=== PATIENT | female | born 1970 | race Caucasian/White ===

== ENCOUNTER → 2023-09-12 | Outpatient (CLI) | payer BC ==
--- NOTE | 2023-09-12 21:32 | XR ---
EXAMINATION TYPE: XR chest 2V DATE OF EXAM: 09/12/2023 6:14 PM CLINICAL INDICATION:Female, 52 years old with history of HAS PFT FIRST!!!; [facility] COMPARISON: None TECHNIQUE: XR chest 2V Frontal and lateral views of the chest. FINDINGS: Lungs/Pleura: There is flattening of the diaphragm with increased lucency of the lungs. No evidence o f pneumothorax, pleural effusion or focal consolidation. Pulmonary vascularity: Unremarkable. Heart/mediastinum: Cardiomediastinal silhouette is unremarkable. Musculoskeletal: No acute osseous pathology. Other findings: None IMPRESSION: 1. No acute cardiopulmonary disease process. 2. COPD changes.
== END ==
LOC: CPPFTMAIN 16:45
PROVIDERS: ATTEND Internal Medicine
DX: R06.09 Other forms of dyspnea (principal); J44.9 Chronic obstructive pulmonary disease, unspecified
CPT/HCPCS: 71046; 94060; 94726; 94729

== ENCOUNTER → 2023-09-14 | Outpatient (CLI) | payer BC ==
[2023-09-15 02:13] LABS: Basophils # (A) 0.07 X 10*3/uL (0.00-0.10); Basophils % (A) 0.9 %; Eosinophils % (A) 2.5 %; HCT 50.4 % (37.2-46.3); HGB 15.8 g/dL (12.0-15.0); Lymphocytes # (A) 2.08 X 10*3/uL (0.90-5.00); Lymphocytes % (A) 26.4 %; MCH 28.7 pg (27.0-32.0); MCHC 31.3 g/dL (32.0-37.0); MCV 91.6 FL (80.0-97.0); Mean Platelet Volume 10.7 FL (9.5-12.2); Monocytes # (A) 0.44 X 10*3/uL (0.20-1.00); Monocytes % (A) 5.6 %; NRBC Per 100 WBC 0 X 10*3/uL (0.00-0.01); Neutrophils # (A) 5.01 X 10*3/uL (1.80-7.70); Neutrophils % (A) 63.6 %; Platelet Count 248 X 10*3/uL (140-440); RDW 13.5 % (11.5-14.5); WBC 7.88 X 10*3/uL (4.50-10.00)
[2023-09-15 02:52] LABS: ALT 11 U/L (8-44); AST 16 U/L (13-35); Albumin 4.8 g/dL (3.8-4.9); Alkaline Phosphatase 78 U/L (41-126); BUN/Creat Ratio 19.12 Ratio (12.00-20.00); Blood Urea Nitrogen 15.3 mg/dL (9.0-27.0); Calcium 10.1 mg/dL (8.7-10.3); Carbon Dioxide 27.7 mmol/L (21.6-31.8); Chloride 100 mmol/L (96-109); Chol/HDL Ratio 4.44 Ratio; Globulin 2.4 g/dL (1.6-3.3); Glucose 81 mg/dL (70-110); LDL Cholesterol,Calculated 189.4 mg/dL (0.0-131.0); Potassium 4.7 mmol/L (3.5-5.5); Rheumatoid Factor, Qnt <15 IU/mL (0-15); Sodium 138 mmol/L (135-145); Total Bilirubin 0.3 mg/dL (0.3-1.2); Total Protein 7.2 g/dL (6.2-8.2)
[2023-09-15 03:45] LABS: Erythrocyte Sedimentation Rate 11 mm/Hr (0-20)
[2023-09-15 03:56] LABS: Centromere Antibody <0.2 AI; Centromere Antibody Interp Negative (Negative); Cyclic Citrull Pep IgG Unit <1.5 U/mL (<=3.9); Cyclic Citrullinated Pep IgG Negative; DNA Double-Stranded Negative (Negative); Scleroderma SC-70 Ab <0.2 AI
== END | disposition home or self-care (01) ==
LOC: LABWHC1 14:18
PROVIDERS: ATTEND Internal Medicine
DX: Z00.00 Encounter for general adult medical examination without abnormal findings (principal); M79.7 Fibromyalgia; R20.2 Paresthesia of skin
CPT/HCPCS: 36415; 80053; 80061; 82607; 82746; 84443; 85025; 85652; 86038; 86200; 86225; 86235; 86431

== ENCOUNTER → 2023-09-20 | Outpatient (CLI) | payer BC ==
--- NOTE | 2023-09-23 23:34 | MM ---
Reason for Exam: Screening (asymptomatic). Patient History: Menarche at age 14. First Full-Term at age 19. Postmenopausal. Patient has history of breast feeding. Maternal aunt had breast cancer, age 45. Mother had breast cancer, right, age 50. Mother had breast cancer, right, age 51. Risk Values: Xenia 5 year model risk: 1.8%. NCI Lifetime model risk: 16.0%. Prior Study Comparison: No prior studies available for comparison. Tissue Density: The breast tissue is heterogeneously dense. This may lower the sensitivity of mammography. Findings: Analyzed By CAD. On the right, lateral subareolar nodularity warrants further evaluation. In the lateral aspect of the right breast at a middle depth, there is nodularity which may represent an intramammary lymph node but further evaluation is recommended. In the left breast, there is an asymmetric density laterally at a posterior depth which incompletely disperses on 3 images. Further evaluation is recommended. No suspicious microcalcification or other discrete abnormality is seen. Overall Assessment: Incomplete: need additional imaging evaluation, BI-RAD 0 Management: Special View Mammogram of both breasts. Diagnostic Breast Ultrasound of both breasts. 1. Right: Additional views to include spot 3-D CC (2 sites), spot 3-D MLO, and 3-D lateral views. 2. Left: Additional views to include spot 3-D CC, 3-D CC rolled medial, and 3-D ML views. 3. Targeted ultrasound on either side if any persisting abnormality. [facility] will attempt to contact patient to return for supplemental views and ultrasound if indicated. Electronically signed and approved by: Jessica Estrada M.D. Radiologist
== END | disposition home or self-care (01) ==
LOC: RADMAMWWP 13:42
PROVIDERS: ATTEND Internal Medicine
DX: Z12.31 Encounter for screening mammogram for malignant neoplasm of breast (principal); Z78.0 Asymptomatic menopausal state; Z80.3 Family history of malignant neoplasm of breast
CPT/HCPCS: 77063; 77067

== ENCOUNTER → 2023-09-28 | Outpatient (CLI) | payer BC ==
--- NOTE | 2023-09-28 14:37 | US ---
EXAMINATION TYPE: US arterial LE multi level DATE OF EXAM: 09/28/2023 11:11 AM CLINICAL INDICATION: Female, 52 years old with history of R25.2 CRAMP AND SPASM; Patient gets crampin g in both legs for years at rest and when walking. History of: Smoker: Current Hypertension: No Diabetic: No Hyperlipidemia: Yes TIA/CVA: No Previous Vascular Surgery: No CAD: No ND: No Vascular Ulcers: None Claudication: ? Gangrene: No Doppler Waveforms: Right: Multiphasic Left: Multiphasic Right Brachial Pressure: 142 Left Brachial Pressure: 138 Ankle-Brachial Indices: Right: 0.95 Left: 0.89 Toe Brachial Indices: Right: 0.70 Left: 0.69 IMPRESSION: Ankle brachial indices within normal limits.
== END | disposition home or self-care (01) ==
LOC: RADUSWWP 10:11
PROVIDERS: ATTEND Internal Medicine
DX: R25.2 Cramp and spasm (principal)
CPT/HCPCS: 93923

== ENCOUNTER → 2023-10-06 | Outpatient (CLI) | payer BC ==
--- NOTE | 2023-10-06 14:17 | MM ---
Reason for Exam: Additional evaluation requested from abnormal screening. Last screening mammogram was performed less than 1 month ago. Patient History: Menarche at age 14. First Full-Term at age 19. Postmenopausal. Patient has history of breast feeding. Maternal aunt had breast cancer, age 45. Mother had breast cancer, right, age 50. Mother had breast cancer, right, age 51. Risk Values: Xenia 5 year model risk: 1.8%. NCI Lifetime model risk: 16.0%. Prior Study Comparison: 09/20/2023 Bilateral MG 3D screening mammo w/cad, [facility]. Tissue Density: The breast tissue is heterogeneously dense. This may lower the sensitivity of mammography. Findings: Analyzed By CAD. Left breast: Under compression no persistent suspicious distortion is evident. Right breast: With compression, no suspicious lateral persistent density is evident. There may be some persistent nodularity within the anterior right breast craniocaudal view. This may be 2 adjacent densities measuring 0.6-1.0 cm in the subareolar right breast. Additional evaluation with ultrasound is recommended. Overall Assessment: Incomplete: need additional imaging evaluation, BI-RAD 0 Management: Diagnostic Breast Ultrasound of the right breast. A negative mammogram report should not preclude additional follow up of suspicious palpable abnormalities. Patient should continue monthly self breast exam. A clinical breast exam by your physician is recommended on an annual basis and results should be correlated with mammographic findings. Electronically signed and approved by: Renato Lechuga D.O. Radiologis
--- NOTE | 2023-10-06 15:13 | USB ---
Reason for Exam: Additional evaluation requested from abnormal screening. Patient History: Menarche at age 14. First Full-Term at age 19. Postmenopausal. Patient has history of breast feeding. Maternal aunt had breast cancer, age 45. Mother had breast cancer, right, age 50. Mother had breast cancer, right, age 51. Risk Values: Xenia 5 year model risk: 1.8%. NCI Lifetime model risk: 16.0%. Prior Study Comparison: 09/20/2023 Bilateral MG 3D screening mammo w/cad, [facility]. Findings: The axilla of the right breast and the retroareolar of the right breast were scanned. Multiple ducts are present in the subareolar breast. There is some dilated ducts contain some debris near 9:00 position which correlates with mammographic finding. Short-term follow-up is recommended. Overall Assessment: Probably benign, BI-RAD 3 Management: Diagnostic Mammogram of the right breast in 6 months. Diagnostic Breast Ultrasound of the right breast in 6 months. A clinical breast exam by your physician is recommended on an annual basis and results should be correlated with mammographic findings. This exam should not preclude additional follow-up of suspicious palpable abnormalities. Results were given to the patient verbally at the time of exam. Electronically signed and approved by: Renato Lechuga D.O. Radiologis
== END | disposition home or self-care (01) ==
LOC: RADMAMWWP 13:33
PROVIDERS: ATTEND Internal Medicine
DX: R92.333 Mammographic heterogeneous density, bilateral breasts (principal); Z78.0 Asymptomatic menopausal state; Z80.3 Family history of malignant neoplasm of breast
CPT/HCPCS: 77062; 77066

== ENCOUNTER → 2023-12-13 | Outpatient (CLI) | payer BC | END | disposition home or self-care (01) | LOC: LABWHC1 10:55 | PROVIDERS: ATTEND Psychiatry & Neurology Neurology | DX: I49.9 Cardiac arrhythmia, unspecified (principal); R94.31 Abnormal electrocardiogram [ECG] [EKG] | CPT/HCPCS: 36415; 93005 ==

== ENCOUNTER → 2024-05-31 | Outpatient (CLI) | payer BC, OTHER ==
--- NOTE | 2024-05-31 14:15 | CTL ---
EXAMINATION TYPE: CT Low Dose Lung DATE OF EXAM ORDERED: 05/31/2024 HISTORY: . Lung cancer screening CT DLP: 125.[address] CTDI: 3.1 mGy Automated exposure control for dose reduction was used. SCREENING VISIT: COMPARISON: None TECHNIQUE: Low dose computed tomography scan was performed through the chest at 1 mm thick sections a nd reconstructed images in multiple planes at 1 mm and [address] DIAGNOSTIC QUALITY: Satisfactory FINDINGS: No consolidative pneumonia. No pleural effusion or pneumothorax. No sizable pulmonary nodules. Airway s are patent. Soft tissue the neck limited by artifact. Aorta normal caliber. No significant coronary calcification. Heart size normal. Assessment for adenop athy limited by technique. No pleural effusion or pneumothorax. Small hiatal hernia. Mild hypertrophic and degenerative changes of the spine. IMPRESSION: 1. No sizable pulmonary nodules. 2. No acute intrathoracic process. CT LUNG RAD AND CT CHEST RECOMMENDATION: Lung-Rad 1 Negative: Continue annual screening with LDCT in 12 months.
--- NOTE | 2024-05-31 17:19 | US ---
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 Indirect Doppler criteria was utilized. FINDINGS: EXAM MEASUREMENTS: RIGHT: Peak Systolic Velocity (PSV) cm/sec ----- Right CCA: 62.5 ----- Right ICA: 62.1 ----- Right ECA: 68.8 ICA/CCA ratio: 1.0 RIGHT: End Diastole cm/sec ----- Right CCA: 24.1 ----- Right ICA: 19.8 ----- Right ECA: 18.6 LEFT: Peak Systolic Velocity (PSV) cm/sec ----- Left CCA: 58.5 ----- Left ICA: 74.3 ----- Left ECA: 72.7 ICA/CCA ratio: 1.3 LEFT: End Diastole cm/sec ----- Left CCA: 20.2 ----- Left ICA: 20.4 ----- Left ECA: 18.7 VERTEBRALS (direction of flow): Right Vertebral: Antegrade Left Vertebral: Antegrade Rhythm: Normal No significant stenosis IMPRESSION: Less than 50% stenosis of the bilateral carotid bifurcations. Criteria for Assigning % of Stenosis / Diameter reduction (Estimation based on the indirect measurements of the internal carotid artery velocities (ICA PSV). 1. Normal (no stenosis)=ICA PSV < 125 cm/s: ratio < 2.0: ICA EDV<40 cm/s. 2. Less than 50% stenosis=ICA PSV < 125 cm/s: ratio < 2.0: ICA EDV<40 cm/s. 3. 50 to 69% stenosis=ICA PSV of 125 to 230 cm/s: ration 2.0 ? 4.0: ICA EDV 40-100 cm/s. 4. Greater than 70% stenosis to near occlusion= ICA PSV > 230 cm/s: ratio > 4.0: ICA EDV > 100 cm/s. 5. Near occlusion= ICA PSV velocities may be low or undetectable: variable ratio and ICA EDV. 6. Total occlusion=unable to detect flow.
--- NOTE | 2024-06-01 12:18 | CA ---
Transthoracic Echo Report Name: ERROR Age: 2 Gender: F : 1970 Exam Date: 05/31/2024 13:34 Exam Location: [place] [facility] Ht (in): 63 Wt (lb): 170 Ordering Physician: Eligio Wood DO Attending/Referring Phys: Eligio Wood DO Heel Caser Nya Rogel, [facility] Procedure CPT: Indications: I63.81 Cardiac Hx: Technical Quality: Fair Contrast 1: Total Dose (mL): Contrast 2: Total Dose (mL): MEASUREMENTS (Male / Female) Normal Values 2D ECHO LV Diastolic Diameter PLAX 3.2 cm 4.2 - 5.9 / 3.9 - 5.3 cm LV Systolic Diameter PLAX 2.4 cm IVS Diastolic Thickness 1.1 cm 0.6 - 1.0 / 0.6 - 0.9 cm LVPW Diastolic Thickness 1.3 cm 0.6 - 1.0 / 0.6 - 0.9 cm LV Relative Wall Thickness 0.7 RV Internal Dim ED PLAX 3.0 cm LA Volume 40.1 cm??? 18 - 58 / 22 - 52 cm??? LA Volume Index 21.3 cm???/m??? 16 - 28 cm???/m??? M-MODE Aortic Root Diameter MM 3.4 cm LA Systolic Diameter MM 3.5 cm LA Ao Ratio MM 1.0 AV Cusp Separation MM 1.9 cm DOPPLER AV Peak Velocity 100.0 cm/s AV Peak Gradient 4.0 mmHg AV Mean Velocity 75.0 cm/s AV Mean Gradient 2.4 mmHg AV Velocity Time Integral 18.8 cm LVOT Peak Velocity 90.3 cm/s LVOT Peak Gradient 3.3 mmHg LVOT Velocity Time Integral 18.5 cm MV Area PHT 3.3 cm??? Mitral E Point Velocity 79.5 cm/s Mitral A Point Velocity 110.4 cm/s Mitral E to A Ratio 0.7 MV Deceleration Time 229.2 ms MV E' Velocity 10.7 cm/s Mitral E to MV E' Ratio 7.4 FINDINGS Left Ventricle Mildly increased left ventricular wall thickness. Left ventricular cavity size normal. Normal left ventricular systolic function with no obvious regional wall motion abnormalities. Grade 1 diastolic dysfunction. Left ventricular ejection fraction is estimated at 55-60 %. Right Ventricle Normal right ventricular size and function. Right ventricular systolic pressure within normal limits. Right Atrium Normal right atrial size. Left Atrium Normal left atrial size. Interatrial septal aneurysm. Mitral Valve Structurally normal mitral valve. Mitral valve thickened. Mild mitral annular calcification. Mild mitral regurgitation. Aortic Valve Trileaflet aortic valve. No aortic valve stenosis or regurgitation. Tricuspid Valve Structurally normal tricuspid valve. Mild tricuspid regurgitation. Pulmonic Valve Structurally normal pulmonic valve. Pericardium No pericardial effusion. Aorta Normal size aortic root and proximal ascending aorta. CONCLUSIONS Left ventricular ejection fraction 55-60% Mildly increased left ventricular wall thickness Mild mitral calcification Mild mitral regurgitation Previewed by: Dr. Mychal Denny DO (Electronically Signed) Final Date: 01 June 2024 12:17
== END | disposition home or self-care (01) ==
LOC: RADCTMAIN 13:07
PROVIDERS: ATTEND Internal Medicine
DX: I63.81 Other cerebral infarction due to occlusion or stenosis of small artery (principal); Z86.73 Personal history of transient ischemic attack (TIA), and cerebral infarction without residual deficits; I34.0 Nonrheumatic mitral (valve) insufficiency; I34.81 Nonrheumatic mitral (valve) annulus calcification
CPT/HCPCS: 71271; 93306; 93880

== ENCOUNTER → 2024-07-24 | Outpatient (CLI) | payer BC, OTHER ==
--- NOTE | 2024-07-24 14:14 | MM ---
Reason for Exam: Follow-up at short interval from prior study. Last screening mammogram was performed 9 month(s) ago. Patient History: Menarche at age 14. First Full-Term at age 19. Postmenopausal. Patient has history of breast feeding. Maternal aunt had breast cancer, age 45. Mother had breast cancer, right, age 50. Mother had breast cancer, right, age 51. Risk Values: Xenia 5 year model risk: 1.9%. NCI Lifetime model risk: 15.8%. Prior Study Comparison: 09/20/2023 Bilateral MG 3D screening mammo w/cad, [facility]. 10/06/2023 Bilateral MG 3D work up w/cad [facility], [facility]. Tissue Density: Right: The breasts are heterogeneously dense, which may obscure small masses. Findings: Analyzed By CAD. Prominent ducts persist retroareolar region right breast. No evidence for distinct mass or distortion. No suspicious microcalcifications. Overall Assessment: Incomplete: need additional imaging evaluation, BI-RAD 0 Management: Diagnostic Breast Ultrasound of the right breast. . Results were given to the patient verbally at the time of exam. Patient should continue monthly self-breast exams. A clinical breast exam by your physician is recommended on an annual basis. This exam should not preclude additional follow-up of suspicious palpable abnormalities. Note on Xenia scores and lifetime risk: 1. A Xenia score greater than 3% is considered moderate risk. If this is the case, consider specialist referral to assess eligibility for a risk reducing agent. 2. If overall lifetime risk for the development of breast cancer is 20% or higher, the patient may qualify for future screening with alternating mammogram and breast MRI. [facility], , 07/24/2024 1:52 PM. Electronically signed and approved by: Von Haddad M.D. Radiologis
--- NOTE | 2024-07-24 14:14 | USB ---
Reason for Exam: Follow-up at short interval from prior study. Patient History: Menarche at age 14. First Full-Term at age 19. Postmenopausal. Patient has history of breast feeding. Maternal aunt had breast cancer, age 45. Mother had breast cancer, right, age 50. Mother had breast cancer, right, age 51. Risk Values: Xenia 5 year model risk: 1.9%. NCI Lifetime model risk: 15.8%. Technique: Method: Targeted. Prior Study Comparison: 09/20/2023 Bilateral MG 3D screening mammo w/cad, [facility]. 10/06/2023 Bilateral MG 3D work up w/cad [facility], [facility]. Findings: The axilla of the right breast and the retroareolar of the right breast were scanned. Again noted are retroareolar prominent ducts with internal debris. No distinct masses appreciated. Continued follow-up advised with six-month follow-up ultrasound recommended. Patient is due for bilateral mammography in October 2024.. Overall Assessment: Probably benign, BI-RAD 3 Management: Diagnostic Mammogram of both breasts in 3 months. A clinical breast exam by your physician is recommended on an annual basis and results should be correlated with mammographic findings. This exam should not preclude additional follow-up of suspicious palpable abnormalities. Results were given to the patient verbally at the time of exam. [facility], , 07/24/2024 2:11 PM. Electronically signed and approved by: Von Haddad M.D. Radiologis
== END | disposition home or self-care (01) ==
LOC: RADMAMWWP 13:25
PROVIDERS: ATTEND Internal Medicine
CPT/HCPCS: 77061; 77065